=== PATIENT | male | born 1960 | race Caucasian/White ===

== ENCOUNTER 2021-12-21 20:16 | Inpatient (IN) ==
[2021-12-22] MEDS ORDERED: tiZANidine 4 MG TABLET PO PRN (01:43)
[2021-12-22] MEDS ORDERED: *HR* HYDROmorphone 2 MG TABLET PO PRN (01:43)
[2021-12-22] MEDS ORDERED: Naloxone 0.4 MG/ML INJ IVP PRN ×2 (01:54→11:16)
[2021-12-22] MEDS ORDERED: *HR* HYDROcodone/Acet 5/325 mg TABLET PO PRN ×2 (01:54→11:16)
[2021-12-22] MEDS ORDERED: Acetaminophen 325 MG TABLET PO PRN (01:54)
[2021-12-22] MEDS ORDERED: 0.9 % Sodium Chloride 1,000 ML IVC SCH (02:00)
[2021-12-22] MEDS ORDERED: D5% in Water 1,000 ML IVC PRN ×2 (02:02→11:16)
[2021-12-22] MEDS ORDERED: Dextrose 4 GM Chewable Tablets PO PRN ×4 (02:02→11:16)
[2021-12-22] MEDS ORDERED: *HR* Dextrose 50 % in Water (Syg) 50 ML SYRINGE IVP PRN ×2 (02:02→11:16)
[2021-12-22] MEDS ORDERED: Prochlorperazine 10 MG/2 ML VIAL IVP PRN ×2 (02:07→11:16)
[2021-12-22 02:27] LABS: Hematocrit 39.8 % (37.5-50.1); Hemoglobin 14.1 g/dL (12.9-16.9); Mean Corpuscular HGB Conc 35.4 g/dL (31.6-35.5); Mean Corpuscular Hemoglobin 30.9 pg (28.0-33.3); Mean Corpuscular Volume 87.1 fL (83.0-100.0); Mean Platelet Volume 8.8 fL (9.4-12.4); Platelet Count 306 K/mcL (140-400); Red Blood Count 4.57 M/mcL (4.19-5.50); Red Cell Distribution Width 12.8 % (11.5-14.5); Segmented Neutrophils % 75.2 %; White Blood Count 11.4 K/mcL (4.3-11.1)
[2021-12-22 02:28] LABS: Basophils # 0.1 K/mcL (0.0-0.2); Basophils % 0.6 %; Eosinophils # 0.1 K/mcL (0.0-0.6); Eosinophils % 0.5 %; Lymphocytes # 1.9 K/mcL (0.6-4.6); Lymphocytes % 16.7 %; Monocytes # 0.7 K/mcL (0.0-1.3); Neutrophils # 8.6 K/mcL (1.6-8.9)
[2021-12-22 02:33] LABS: Estimated Average Glucose 243 mg/dl; Hemoglobin A1C 10.1 %
[2021-12-22 02:48] LABS: % Iron Saturation 9 % (20-55); Alanine Aminotransferase 36 Units/L (7-52); Albumin 3.7 g/dL (3.5-5.7); Albumin/Globulin Ratio 1.6 (1.1-2.2); Alkaline Phosphatase 84 Units/L (34-104); Aspartate Amino Transferase 21 Units/L (13-39); BUN/Creatinine Ratio 23 (6-26); Bilirubin,Total 0.6 mg/dL (0.3-1.0); Blood Urea Nitrogen 24 mg/dL (8-23); Calcium 8.9 mg/dL (8.6-10.3); Carbon Dioxide 25 mEq/L (23-29); Chloride 101 mEq/L (98-107); Chol/HDL Ratio 4.7 (0-4.9); Cholesterol 159 mg/dL (< 200); Globulin 2.3 g/dL (2.4-3.5); Glucose 345 mg/dL (70-105); HDL Cholesterol 34 mg/dL (40-59); Iron 34 mcg/dL (65-175); LDL Cholesterol,Calculated 89 mg/dL (< 100); Magnesium 1.8 mg/dL (1.6-2.6); Osmolality,Calculated 298 (280-300); Potassium 4.4 mEq/L (3.5-5.1); Sodium 135 mEq/L (136-145); Transferrin 256 mg/dL (203-362); Triglycerides 180 mg/dL (< 150); eGFR For African Americans > 60 (> 60); eGFR For Non-African Americans > 60 (> 60)
[2021-12-22 03:00] LABS: Thyroid Stimulating Hormone 3.602 mcIU/mL (0.340-5.600)
[2021-12-22 03:06] LABS: Ferritin 106 ng/mL (20-250)
[2021-12-22] MEDS ORDERED: Insulin LISPRO 300 UNITS/3 ML VIAL SUBQ SCH ×2 (06:00→12:00)
[2021-12-22 06:28] LABS: Bacteria,Urine Few per hpf (None-Few); Bilirubin,Urine Negative (Negative); Blood,Urine Moderate (Negative); Budding Yeast,Urine Few per hpf (None Seen); Clarity,Urine Turbid (Clear); Color,Urine Yellow (Yellow); Glucose,Urine (UA) >=1000 mg/dL (Normal); Ketones,Urine Negative (Negative); Leukocyte Esterase,Urine Large (Negative); Mucus,Urine Few per lpf (None-Few); Nitrite,Urine Negative (Negative); PH,Urine 6.5 pH Units (5.0-8.0); Protein,Urine 100 mg/dL (Neg-Trace); RBC,Urine TNTC per hpf (0-3); Specific Gravity,Urine 1.024 (1.010-1.025); Urobilinogen,Urine Normal (Normal); WBC,Urine TNTC per hpf (0-3)
[2021-12-22] MEDS ORDERED: CeFAZolin Syr 2,000MG/20 ML 2,000 MG/20 ML SYRINGE IVPB ONE (07:10)
[2021-12-22] MEDS ORDERED: Ringers Solution, Lactated 1,000 ML IVC SCH (07:15)
[2021-12-22] MEDS ORDERED: Acetaminophen IV 1,000 MG/100 ML BAG IVPB ONE (07:20)
[2021-12-22] MEDS ORDERED: Famotidine 20 MG/2 ML VIAL IVP ONE (07:20)
[2021-12-22] MEDS ORDERED: *HR* Propofol 200 MG/20 ML VIAL IVP ONE ×2 (07:21→07:24)
[2021-12-22] MEDS ORDERED: Lidocaine -MPF 2% 5 ML VIAL ONE (07:28)
[2021-12-22] MEDS ORDERED: Ondansetron 4 MG/2 ML VIAL ONE (07:30)
[2021-12-22] MEDS ORDERED: *HR* FentaNYL (PF) 100 MCG/2 ML VIAL ONE (07:31)
[2021-12-22] MEDS ORDERED: Lidocaine HCL 4 ML Topical Solution (Laryng-O-Jet Kit Sterile Pak) TP ONE (07:41)
[2021-12-22] MEDS ORDERED: Insulin Human Regular 10 UNIT in 0.9 % Sodium Chloride 10 ML IV ONE (08:33)
[2021-12-22] MEDS ORDERED: Sugammadex Sodium 200 MG/2 ML VIAL IV ONE (08:55)
[2021-12-22] MEDS ORDERED: *HR* HYDROMORPHONE 2 MG/ML VIAL ONE (08:57)
[2021-12-22] MEDS ORDERED: cefTRIAXone 1,000 MG in 0.9 % Sodium Chloride 10 ML IVPB SCH (09:00)
[2021-12-22] MEDS ORDERED: lisinopriL 5 MG TABLET PO SCH (09:00)
[2021-12-22] MEDS ORDERED: *HR* HYDROmorphone PF 0.5 MG/0.5 ML SYRINGE IVP PRN (09:10)
[2021-12-22] MEDS ORDERED: Ondansetron 4 MG/2 ML VIAL IVP PRN (09:10)
[2021-12-22] MEDS ORDERED: Ketorolac 30 MG/ML VIAL ONE (10:13)
[2021-12-22] MEDS: Insulin LISPRO 300 UNITS/3 ML VIAL SUBQ SCH ×4 (12:17→21:12)
[2021-12-22] MEDS: 0.9 % Sodium Chloride 1,000 ML IVC SCH (15:07)
[2021-12-22] MEDS: *HR* HYDROmorphone 2 MG TABLET PO PRN ×2 (17:16→21:19)
[2021-12-22] MEDS: Insulin DETEMIR 100 UNIT/ML X5UNITS SUBQ SCH (21:12)
[2021-12-23] MEDS: 0.9 % Sodium Chloride 1,000 ML IVC SCH (03:18)
[2021-12-23 04:51] LABS: Hematocrit 36.4 % (37.5-50.1); Hemoglobin 12.7 g/dL (12.9-16.9); Mean Corpuscular HGB Conc 34.9 g/dL (31.6-35.5); Mean Corpuscular Hemoglobin 31.1 pg (28.0-33.3); Mean Corpuscular Volume 89.2 fL (83.0-100.0); Mean Platelet Volume 8.6 fL (9.4-12.4); Platelet Count 277 K/mcL (140-400); Red Blood Count 4.08 M/mcL (4.19-5.50); Red Cell Distribution Width 12.9 % (11.5-14.5); White Blood Count 14.1 K/mcL (4.3-11.1)
[2021-12-23] MEDS ORDERED: *HR* Labetalol 20 MG/4 ML SYRINGE IVP ONE (04:52)
[2021-12-23] MEDS: *HR* HYDROmorphone 2 MG TABLET PO PRN ×3 (04:59→23:23)
[2021-12-23] MEDS: *HR* Enoxaparin 40 MG/0.4 ML SYRINGE SQ SCH (05:00)
[2021-12-23 05:07] LABS: BUN/Creatinine Ratio 24 (6-26); Blood Urea Nitrogen 25 mg/dL (8-23); Calcium 8.5 mg/dL (8.6-10.3); Carbon Dioxide 24 mEq/L (23-29); Chloride 102 mEq/L (98-107); Glucose 292 mg/dL (70-105); Osmolality,Calculated 295 (280-300); Sodium 135 mEq/L (136-145); eGFR For African Americans > 60 (> 60); eGFR For Non-African Americans > 60 (> 60)
[2021-12-23] MEDS: lisinopriL 5 MG TABLET PO SCH (08:05)
[2021-12-23] MEDS: amLODIPine 5 MG TABLET PO SCH (08:05)
[2021-12-23] MEDS: Insulin LISPRO 300 UNITS/3 ML VIAL SUBQ SCH ×7 (08:12→21:06)
[2021-12-23] MEDS ORDERED: cefTRIAXone 1,000 MG in 0.9 % Sodium Chloride 10 ML IVPB SCH (09:00)
[2021-12-23] MEDS: tiZANidine 4 MG TABLET PO PRN (14:05)
[2021-12-23] MEDS: *HR* OxyCODONE/APAP 5/325 TABLET PO PRN (14:05)
[2021-12-23] MEDS ORDERED: 0.9 % Sodium Chloride 250 ML IVC PRN (15:49)
[2021-12-23] MEDS ORDERED: 0.9 % Sodium Chloride 250 ML ONE (15:52)
[2021-12-23] MEDS: Insulin DETEMIR 100 UNIT/ML X5UNITS SUBQ SCH (21:05)
[2021-12-24 04:29] VITALS: TEMP 98
[2021-12-24] MEDS: tiZANidine 4 MG TABLET PO PRN (04:30)
[2021-12-24] MEDS: *HR* HYDROmorphone 2 MG TABLET PO PRN (04:30)
[2021-12-24] MEDS ORDERED: 0.9 % Sodium Chloride 500 ML IVC PRN (06:00)
[2021-12-24] MEDS ORDERED: 0.9 % Sodium Chloride 1,000 ML ONE (06:06)
[2021-12-24] MEDS: *HR* Enoxaparin 40 MG/0.4 ML SYRINGE SQ SCH (06:10)
[2021-12-24 06:53] LABS: Hematocrit 29.8 % (37.5-50.1); Mean Corpuscular HGB Conc 34.2 g/dL (31.6-35.5); Mean Corpuscular Hemoglobin 30.4 pg (28.0-33.3); Platelet Count 240 K/mcL (140-400); Red Blood Count 3.35 M/mcL (4.19-5.50); Red Cell Distribution Width 12.8 % (11.5-14.5); White Blood Count 11.7 K/mcL (4.3-11.1)
[2021-12-24 06:54] LABS: Hemoglobin 10.2 g/dL (12.9-16.9)
[2021-12-24 07:11] LABS: BUN/Creatinine Ratio 21 (6-26); Blood Urea Nitrogen 24 mg/dL (8-23); Carbon Dioxide 26 mEq/L (23-29); Chloride 101 mEq/L (98-107); Glucose 325 mg/dL (70-105); Osmolality,Calculated 295 (280-300); Potassium 4.2 mEq/L (3.5-5.1); Sodium 134 mEq/L (136-145); eGFR For African Americans > 60 (> 60); eGFR For Non-African Americans > 60 (> 60)
[2021-12-24] MEDS: amLODIPine 5 MG TABLET PO SCH (08:36)
[2021-12-24] MEDS: lisinopriL 5 MG TABLET PO SCH (08:37)
[2021-12-24] MEDS: Insulin LISPRO 300 UNITS/3 ML VIAL SUBQ SCH ×4 (08:50→14:54)
[2021-12-24] MEDS ORDERED: levoFLOXacin 750 MG TABLET PO SCH (10:00)
[2021-12-24] MEDS: *HR* OxyCODONE/APAP 5/325 TABLET PO PRN ×2 (10:37→14:52)
[2021-12-24 14:40] VITALS: BP 183/79; PULSE 81; O2SAT 98
== END 2021-12-24 18:15 | disposition home health service (06) | DRG 308 ==
LOC: 4WAOSI → SUATTDRO 12-22 11:32
PROVIDERS: ADMIT Student in an Organized Health Care Education/Training Program; ATTEND Internal Medicine

== ENCOUNTER 2022-01-04 11:01 | Observation (INO) ==
[2022-01-04] MEDS ORDERED: Acetaminophen 325 MG TABLET PO PRN (13:11)
[2022-01-04] MEDS ORDERED: Ondansetron 4 MG/2 ML VIAL IVP PRN (13:11)
[2022-01-04] MEDS ORDERED: Naloxone 0.4 MG/ML INJ IVP PRN (13:11)
[2022-01-04] MEDS ORDERED: Dextrose 4 GM Chewable Tablets PO PRN ×2 (13:24)
[2022-01-04] MEDS ORDERED: *HR* Dextrose 50 % in Water (Syg) 50 ML SYRINGE IVP PRN (13:24)
[2022-01-04] MEDS ORDERED: D5% in Water 1,000 ML IVC PRN (13:24)
[2022-01-04] MEDS ORDERED: Morphine Sulfate 2 MG/ML SYRINGE IVP PRN (13:47)
[2022-01-04] MEDS: *HR* OxyCODONE/APAP 5/325 TABLET PO PRN ×2 (17:19→23:39)
[2022-01-04] MEDS: Insulin LISPRO 300 UNITS/3 ML VIAL SUBQ SCH (17:28)
[2022-01-04] MEDS: cefTRIAXone 1,000 MG in 0.9 % Sodium Chloride 10 ML IVPB SCH (20:30)
[2022-01-04] MEDS ORDERED: Insulin LISPRO 300 UNITS/3 ML VIAL SUBQ SCH (21:00)
[2022-01-04] MEDS: Insulin DETEMIR 100 UNIT/ML X5UNITS SUBQ SCH (23:21)
[2022-01-05 00:58] LABS: Basophils # 0.1 K/mcL (0.0-0.2); Basophils % 1.1 %; Eosinophils # 0.1 K/mcL (0.0-0.6); Hemoglobin 11.6 g/dL (12.9-16.9); Immature Granulocytes % 4.6 % (0-4); Lymphocytes # 1.7 K/mcL (0.6-4.6); Lymphocytes % 16.8 %; Mean Corpuscular HGB Conc 34.1 g/dL (31.6-35.5); Mean Corpuscular Hemoglobin 29.8 pg (28.0-33.3); Mean Corpuscular Volume 87.4 fL (83.0-100.0); Mean Platelet Volume 8.2 fL (9.4-12.4); Monocytes # 0.5 K/mcL (0.0-1.3); Monocytes % 4.9 %; Neutrophils # 7.3 K/mcL (1.6-8.9); Platelet Count 434 K/mcL (140-400); Red Blood Count 3.89 M/mcL (4.19-5.50); Red Cell Distribution Width 12.9 % (11.5-14.5); Segmented Neutrophils % 71.6 %; White Blood Count 10.2 K/mcL (4.3-11.1)
[2022-01-05 01:05] LABS: INR 1.2; Prothrombin Time 13.7 Seconds (9.4-12.1)
[2022-01-05 01:17] LABS: BUN/Creatinine Ratio 20 (6-26); Blood Urea Nitrogen 19 mg/dL (8-23); Carbon Dioxide 23 mEq/L (23-29); Chloride 99 mEq/L (98-107); Glucose 263 mg/dL (70-105); Magnesium 1.8 mg/dL (1.6-2.6); Osmolality,Calculated 285 (280-300); Potassium 4.3 mEq/L (3.5-5.1); Sodium 132 mEq/L (136-145); eGFR For African Americans > 60 (> 60); eGFR For Non-African Americans > 60 (> 60)
[2022-01-05] MEDS: *HR* OxyCODONE/APAP 5/325 TABLET PO PRN (05:34)
[2022-01-05] MEDS: *HR* Enoxaparin 40 MG/0.4 ML SYRINGE SQ SCH (06:10)
[2022-01-05] MEDS ORDERED: Morphine Sulfate 2 MG/ML SYRINGE IVP PRN (07:55)
[2022-01-05] MEDS: lisinopriL 20 MG TABLET PO SCH (09:00)
[2022-01-05] MEDS: amLODIPine 5 MG TABLET PO SCH (09:01)
[2022-01-05] MEDS: Sennosides/Docusate Sodium TABLET PO SCH ×2 (09:01→20:47)
[2022-01-05] MEDS: Aspirin Enteric Coated 81 MG Tablet PO SCH (09:01)
[2022-01-05] MEDS: Insulin DETEMIR 100 UNIT/ML X5UNITS SUBQ SCH ×2 (09:02→20:47)
[2022-01-05] MEDS: polyethylene glycoL 3350 17 GM POWD.PACK PO SCH (09:02)
[2022-01-05] MEDS: Insulin LISPRO 300 UNITS/3 ML VIAL SUBQ SCH ×3 (09:04→16:39)
[2022-01-05] MEDS: *HR* OxyCODONE/APAP 10/325 TABLET PO PRN ×2 (12:00→19:48)
[2022-01-05] MEDS: cefTRIAXone 1,000 MG in 0.9 % Sodium Chloride 10 ML IVPB SCH (19:52)
[2022-01-06] MEDS: *HR* OxyCODONE/APAP 10/325 TABLET PO PRN ×3 (01:49→20:45)
[2022-01-06 02:26] LABS: Basophils # 0.1 K/mcL (0.0-0.2); Basophils % 0.9 %; Eosinophils # 0.1 K/mcL (0.0-0.6); Eosinophils % 0.9 %; Hematocrit 35.4 % (37.5-50.1); Hemoglobin 11.9 g/dL (12.9-16.9); Immature Granulocytes % 2.8 % (0-4); Lymphocytes # 1.9 K/mcL (0.6-4.6); Lymphocytes % 18.1 %; Mean Corpuscular HGB Conc 33.6 g/dL (31.6-35.5); Mean Corpuscular Hemoglobin 29.2 pg (28.0-33.3); Mean Corpuscular Volume 86.8 fL (83.0-100.0); Mean Platelet Volume 8.2 fL (9.4-12.4); Monocytes # 0.7 K/mcL (0.0-1.3); Monocytes % 6.7 %; Neutrophils # 7.4 K/mcL (1.6-8.9); Platelet Count 504 K/mcL (140-400); Red Blood Count 4.08 M/mcL (4.19-5.50); Red Cell Distribution Width 12.9 % (11.5-14.5); Segmented Neutrophils % 70.6 %; White Blood Count 10.6 K/mcL (4.3-11.1)
[2022-01-06 02:45] LABS: BUN/Creatinine Ratio 21 (6-26); Blood Urea Nitrogen 19 mg/dL (8-23); Calcium 9.3 mg/dL (8.6-10.3); Carbon Dioxide 25 mEq/L (23-29); Chloride 99 mEq/L (98-107); Glucose 262 mg/dL (70-105); Magnesium 1.8 mg/dL (1.6-2.6); Osmolality,Calculated 287 (280-300); Potassium 4.2 mEq/L (3.5-5.1); Sodium 133 mEq/L (136-145); eGFR For African Americans > 60 (> 60); eGFR For Non-African Americans > 60 (> 60)
[2022-01-06] MEDS: *HR* Enoxaparin 40 MG/0.4 ML SYRINGE SQ SCH (05:56)
[2022-01-06] MEDS: Sennosides/Docusate Sodium TABLET PO SCH ×3 (07:44→20:46)
[2022-01-06] MEDS: Aspirin Enteric Coated 81 MG Tablet PO SCH (07:44)
[2022-01-06] MEDS: polyethylene glycoL 3350 17 GM POWD.PACK PO SCH (07:45)
[2022-01-06] MEDS: lisinopriL 20 MG TABLET PO SCH (07:45)
[2022-01-06] MEDS: amLODIPine 5 MG TABLET PO SCH (07:45)
[2022-01-06] MEDS: Insulin LISPRO 300 UNITS/3 ML VIAL SUBQ SCH ×3 (07:46→16:41)
[2022-01-06] MEDS: Insulin DETEMIR 100 UNIT/ML X5UNITS SUBQ SCH ×2 (07:51→20:46)
[2022-01-06] MEDS: Fluconazole 150 MG TABLET PO SCH (14:35)
[2022-01-06] MEDS ORDERED: Melatonin 3 MG TABLET PO ONE (22:51)
[2022-01-07 05:08] LABS: Hemoglobin 12.4 g/dL (12.9-16.9); Immature Granulocytes % 2.2 % (0-4); Lymphocytes % 23.9 %; Mean Corpuscular HGB Conc 34.4 g/dL (31.6-35.5); Mean Corpuscular Hemoglobin 30.3 pg (28.0-33.3); Mean Platelet Volume 8.1 fL (9.4-12.4); Monocytes % 6.9 %; Platelet Count 549 K/mcL (140-400); Red Blood Count 4.09 M/mcL (4.19-5.50); Red Cell Distribution Width 12.7 % (11.5-14.5); Segmented Neutrophils % 64.9 %; White Blood Count 10.7 K/mcL (4.3-11.1)
[2022-01-07] MEDS: *HR* OxyCODONE/APAP 10/325 TABLET PO PRN ×3 (05:08→20:58)
[2022-01-07] MEDS: *HR* Enoxaparin 40 MG/0.4 ML SYRINGE SQ SCH (05:08)
[2022-01-07 05:09] LABS: Basophils # 0.1 K/mcL (0.0-0.2); Eosinophils # 0.1 K/mcL (0.0-0.6); Eosinophils % 1.1 %; Lymphocytes # 2.6 K/mcL (0.6-4.6); Monocytes # 0.7 K/mcL (0.0-1.3); Neutrophils # 6.9 K/mcL (1.6-8.9)
[2022-01-07 05:23] LABS: BUN/Creatinine Ratio 23 (6-26); Blood Urea Nitrogen 23 mg/dL (8-23); Calcium 9.5 mg/dL (8.6-10.3); Carbon Dioxide 26 mEq/L (23-29); Chloride 98 mEq/L (98-107); Glucose 223 mg/dL (70-105); Magnesium 1.9 mg/dL (1.6-2.6); Osmolality,Calculated 287 (280-300); Potassium 4.3 mEq/L (3.5-5.1); Sodium 133 mEq/L (136-145); eGFR For African Americans > 60 (> 60); eGFR For Non-African Americans > 60 (> 60)
[2022-01-07] MEDS: amLODIPine 5 MG TABLET PO SCH (08:29)
[2022-01-07] MEDS: Fluconazole 150 MG TABLET PO SCH (08:29)
[2022-01-07] MEDS: lisinopriL 20 MG TABLET PO SCH (08:30)
[2022-01-07] MEDS: Sennosides/Docusate Sodium TABLET PO SCH ×2 (08:30→20:58)
[2022-01-07] MEDS: Insulin LISPRO 300 UNITS/3 ML VIAL SUBQ SCH ×3 (08:31→16:56)
[2022-01-07] MEDS: Aspirin Enteric Coated 81 MG Tablet PO SCH (08:31)
[2022-01-07] MEDS: polyethylene glycoL 3350 17 GM POWD.PACK PO SCH (08:36)
[2022-01-07] MEDS: Insulin DETEMIR 100 UNIT/ML X5UNITS SUBQ SCH ×2 (08:39→20:58)
[2022-01-07] MEDS ORDERED: Artificial Tears SOLN 15 ML BOTTLE BOTH EYES SCH (23:15)
[2022-01-07] MEDS: Lacri-Lube 3.5 GM TUBE BOTH EYES SCH (23:47)
[2022-01-08] MEDS: *HR* OxyCODONE/APAP 10/325 TABLET PO PRN ×3 (03:03→19:45)
[2022-01-08] MEDS: *HR* Enoxaparin 40 MG/0.4 ML SYRINGE SQ SCH (05:30)
[2022-01-08 06:21] LABS: Basophils # 0.1 K/mcL (0.0-0.2); Eosinophils # 0.1 K/mcL (0.0-0.6); Eosinophils % 1.3 %; Hematocrit 38.2 % (37.5-50.1); Hemoglobin 12.8 g/dL (12.9-16.9); Immature Granulocytes % 3.5 % (0-4); Lymphocytes # 3.1 K/mcL (0.6-4.6); Lymphocytes % 28.9 %; Mean Corpuscular HGB Conc 33.5 g/dL (31.6-35.5); Mean Corpuscular Hemoglobin 29.8 pg (28.0-33.3); Mean Corpuscular Volume 88.8 fL (83.0-100.0); Mean Platelet Volume 8.3 fL (9.4-12.4); Monocytes # 0.8 K/mcL (0.0-1.3); Monocytes % 7.2 %; Neutrophils # 6.2 K/mcL (1.6-8.9); Platelet Count 549 K/mcL (140-400); Red Cell Distribution Width 13.2 % (11.5-14.5); Segmented Neutrophils % 58.1 %; White Blood Count 10.6 K/mcL (4.3-11.1)
[2022-01-08 06:51] LABS: BUN/Creatinine Ratio 28 (6-26); Blood Urea Nitrogen 33 mg/dL (8-23); Calcium 9.5 mg/dL (8.6-10.3); Carbon Dioxide 24 mEq/L (23-29); Chloride 98 mEq/L (98-107); Glucose 237 mg/dL (70-105); Magnesium 2.1 mg/dL (1.6-2.6); Osmolality,Calculated 289 (280-300); Potassium 4.6 mEq/L (3.5-5.1); Sodium 132 mEq/L (136-145); eGFR For African Americans > 60 (> 60); eGFR For Non-African Americans > 60 (> 60)
[2022-01-08] MEDS ORDERED: Lactulose Oral Soln 20 GM/30 ML UDC PO ONE (07:42)
[2022-01-08] MEDS: Fluconazole 150 MG TABLET PO SCH (08:38)
[2022-01-08] MEDS: amLODIPine 5 MG TABLET PO SCH (08:39)
[2022-01-08] MEDS: Sennosides/Docusate Sodium TABLET PO SCH ×2 (08:39→19:46)
[2022-01-08] MEDS: Aspirin Enteric Coated 81 MG Tablet PO SCH (08:39)
[2022-01-08] MEDS: lisinopriL 20 MG TABLET PO SCH (08:39)
[2022-01-08] MEDS: polyethylene glycoL 3350 17 GM POWD.PACK PO SCH (08:41)
[2022-01-08] MEDS: Lacri-Lube 3.5 GM TUBE BOTH EYES SCH ×2 (08:41→19:50)
[2022-01-08] MEDS: Insulin DETEMIR 100 UNIT/ML X5UNITS SUBQ SCH ×2 (08:41→19:50)
[2022-01-08] MEDS: Insulin LISPRO 300 UNITS/3 ML VIAL SUBQ SCH ×3 (08:41→16:37)
[2022-01-09] MEDS: *HR* OxyCODONE/APAP 10/325 TABLET PO PRN (01:48)
[2022-01-09 05:11] LABS: Basophils # 0.1 K/mcL (0.0-0.2); Basophils % 1.1 %; Eosinophils # 0.2 K/mcL (0.0-0.6); Eosinophils % 1.6 %; Hematocrit 35.3 % (37.5-50.1); Hemoglobin 11.8 g/dL (12.9-16.9); Immature Granulocytes % 2.8 % (0-4); Lymphocytes # 2.9 K/mcL (0.6-4.6); Lymphocytes % 27.5 %; Mean Corpuscular HGB Conc 33.4 g/dL (31.6-35.5); Mean Corpuscular Hemoglobin 29.6 pg (28.0-33.3); Mean Corpuscular Volume 88.5 fL (83.0-100.0); Mean Platelet Volume 8.4 fL (9.4-12.4); Monocytes # 0.8 K/mcL (0.0-1.3); Monocytes % 7.9 %; Neutrophils # 6.2 K/mcL (1.6-8.9); Platelet Count 508 K/mcL (140-400); Red Blood Count 3.99 M/mcL (4.19-5.50); Red Cell Distribution Width 12.7 % (11.5-14.5); Segmented Neutrophils % 59.1 %; White Blood Count 10.6 K/mcL (4.3-11.1)
[2022-01-09 05:24] LABS: BUN/Creatinine Ratio 32 (6-26); Blood Urea Nitrogen 34 mg/dL (8-23); Carbon Dioxide 25 mEq/L (23-29); Chloride 101 mEq/L (98-107); Glucose 169 mg/dL (70-105); Osmolality,Calculated 288 (280-300); Potassium 4.5 mEq/L (3.5-5.1); Sodium 133 mEq/L (136-145); eGFR For African Americans > 60 (> 60); eGFR For Non-African Americans > 60 (> 60)
[2022-01-09] MEDS: *HR* Enoxaparin 40 MG/0.4 ML SYRINGE SQ SCH (06:02)
[2022-01-09] MEDS: Sennosides/Docusate Sodium TABLET PO SCH ×2 (08:01→21:06)
[2022-01-09] MEDS: polyethylene glycoL 3350 17 GM POWD.PACK PO SCH (08:01)
[2022-01-09] MEDS: Fluconazole 150 MG TABLET PO SCH (08:01)
[2022-01-09] MEDS: Insulin DETEMIR 100 UNIT/ML X5UNITS SUBQ SCH ×2 (08:02→21:06)
[2022-01-09] MEDS: amLODIPine 5 MG TABLET PO SCH (08:02)
[2022-01-09] MEDS: lisinopriL 20 MG TABLET PO SCH (08:02)
[2022-01-09] MEDS: Aspirin Enteric Coated 81 MG Tablet PO SCH (08:02)
[2022-01-09] MEDS: Insulin LISPRO 300 UNITS/3 ML VIAL SUBQ SCH ×3 (08:03→18:02)
[2022-01-09] MEDS: Lacri-Lube 3.5 GM TUBE BOTH EYES SCH ×2 (08:03→21:12)
[2022-01-09] MEDS: *HR* HYDROcodone/Acet 5/325 mg TABLET PO PRN ×2 (11:13→21:06)
[2022-01-09] MEDS ORDERED: *HR* HYDROcodone/Acet 5/325 mg TABLET PO ONE (14:54)
[2022-01-10] MEDS: *HR* HYDROcodone/Acet 5/325 mg TABLET PO PRN ×3 (02:50→18:25)
[2022-01-10 04:01] LABS: Influenza A PCR Negative (Negative); Influenza B PCR Negative (Negative); Resp. Syncytial Virus PCR Negative (Negative)
[2022-01-10 04:03] LABS: SARS-CoV-2 by PCR (In House) Negative (Negative)
[2022-01-10] MEDS: *HR* Enoxaparin 40 MG/0.4 ML SYRINGE SQ SCH (05:40)
[2022-01-10] MEDS: Insulin LISPRO 300 UNITS/3 ML VIAL SUBQ SCH ×3 (07:51→16:33)
[2022-01-10] MEDS: lisinopriL 20 MG TABLET PO SCH (09:13)
[2022-01-10] MEDS: Sennosides/Docusate Sodium TABLET PO SCH (09:13)
[2022-01-10] MEDS: Aspirin Enteric Coated 81 MG Tablet PO SCH (09:14)
[2022-01-10] MEDS: amLODIPine 5 MG TABLET PO SCH (09:14)
[2022-01-10] MEDS: Insulin DETEMIR 100 UNIT/ML X5UNITS SUBQ SCH (09:14)
[2022-01-10] MEDS: Lacri-Lube 3.5 GM TUBE BOTH EYES SCH (09:14)
[2022-01-10] MEDS: polyethylene glycoL 3350 17 GM POWD.PACK PO SCH (09:14)
[2022-01-10 15:54] VITALS: BP 137/64; PULSE 81; TEMP 97.9; O2SAT 97
== END 2022-01-10 18:29 ==
LOC: 3ANU → SUATTDRO 12:42
PROVIDERS: ADMIT Internal Medicine; ATTEND Internal Medicine